=== PATIENT | male | born 1990 | race Caucasian/White ===

== ENCOUNTER 2020-02-26 14:30 | Emergency (ER) | payer SELFPAY ==
[2020-02-26 14:42] VITALS: BP 145/78; PULSE 84; RESP 84; TEMP 37.4; O2SAT 98
--- NOTE | 2020-02-26 14:44 | ED.URI ---
HPI - URI/Sore Throat General Chief Complaint: Upper Respiratory Infection Stated Complaint: URI/Cough Source: patient Mode of arrival: ambulatory Limitations: no limitations History of Present Illness HPI Narrative: Patient is a 29-year-old male who presents requesting Covid testing for employer. Patient reports headache and sinus pressure x2 to 3 days, reports cough. Denies fever, denies body aches or other complaints. He reports taking [id number] meds with limited relief. He denies chest pain or shortness of breath. MD elicited complaint: cough, sinus pain and other (Headache) Related Data Home Medications Medication Instructions Recorded Confirmed No Home Medications 02/26/20 02/26/20 Allergies Allergy/AdvReac Type Severity Reaction Status Date / Time No Known Allergies Allergy Verified 02/26/20 14:42 Review of Systems Review of Systems: Narrative: CONSTITUTIONAL: Denies fever, chills, or sweats. EYES: Denies visual changes, redness, or discharge. ENT: Denies rhinorrhea, congestion, sore throat, or otalgia. Reports sinus pressure CARDIOVASCULAR: Denies chest pain, palpitations, or edema. RESPIRATORY: Reports cough, denies dyspnea. GASTROINTESTINAL: Denies abdominal pain, nausea, vomiting, or diarrhea. GENITOURINARY: Denies dysuria or hematuria. SKIN: Denies rash or itching. MUSCULOSKELETAL: Denies back pain, joint pain, or myalgia. NEUROLOGIC: Reports headache, denies numbness, dizziness, or weakness. PSYCHIATRIC: Denies anxiety or depression. PMFSH Past Medical History Medical History No significant family history No significant past medical history Surgical History Surgical History No significant past surgical history Social History Social History (Updated 02/26/20 @ 14:47 by KATHERINE Santana) Smoking status: Current every day smoker Alcohol intake: current Alcohol use details: Occasional Substance use: never Occupation/Education: occupation Gender identity (if verbalized by the patient): Male Exam Narrative: Exam Narrative: GENERAL: Well-appearing, well-nourished, and in no acute distress. HEAD: Normocephalic, atraumatic. EYES: No redness or drainage. ENT: Mucous membranes pink and moist. CHEST: No respiratory distress. EXTREMITIES: Normal range of motion. SKIN: Warm, dry, no rash. NEURO: No focal deficits. Alert and oriented x3. Gait steady. PSYCH: Normal affect. No signs of depression or anxiety. Course Vital Signs Vital signs: Vital Signs Temperature 37.4 C 02/26/20 14:42 Pulse Rate 84 02/26/20 14:42 Respiratory Rate 84 H 02/26/20 14:42 Blood Pressure 145/78 H 02/26/20 14:42 Pulse Oximetry 98 02/26/20 14:42 Temperature 37.4 C 02/26/20 14:42 Pulse Rate 84 02/26/20 14:42 Respiratory Rate 84 H 02/26/20 14:42 Blood Pressure 145/78 H 02/26/20 14:42 Pulse Oximetry 98 02/26/20 14:42 Reviewed. Patient has been instructed to follow-up with his PCP regarding his blood pressure. MDM - URI/Sore Throat MDM Narrative Medical decision making narrative: Outpatient Covid testing ordered at this time. Patient's vital signs stable, discussed quarantine with patient. Patient is stable for discharge to home. 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 Please quarantine until further instruc
== END 2020-02-26 14:58 | disposition home or self-care (01) ==
PROVIDERS: Emergency Provider Nurse Practitioner
DX: Z20.828 Contact with and (suspected) exposure to other viral communicable diseases (principal); J06.9 Acute upper respiratory infection, unspecified; F17.200 Nicotine dependence, unspecified, uncomplicated
CPT/HCPCS: 99211; G0463

== ENCOUNTER 2020-02-29 12:43 | Outpatient (NON) | payer SELFPAY ==
[2020-03-01 01:07] LABS: SARS-CoV-2 RNA PCR Positive
== END 2020-02-29 12:44 ==
PROVIDERS: Visit Provider Nurse Practitioner
DX: U07.1 COVID-19 (principal)
CPT/HCPCS: 87635; C9803; U0003

== ENCOUNTER 2021-04-28 22:02 | Emergency (ER) | payer OTHER, SELFPAY ==
[2021-04-28 22:03] VITALS: BP 143/71; PULSE 99; RESP 16; TEMP 36.6; O2SAT 100
--- NOTE | 2021-04-28 23:38 | ED.GENADULT ---
HPI - General Adult General Chief complaint: Extremity Injury, Upper Stated complaint: Left hand injury, lac Time Seen by Provider: 04/28/21 22:29 History of Present Illness HPI narrative: Patient is a 30-year-old gentleman who presents to emergency department with chief complaint of left middle finger laceration. Patient reports he was at work and a string container fell cutting the top of his left middle finger. Patient reports he has full range of motion reports that the bleeding is controlled reports that his tetanus is up-to-date. Related Data Home Medications Medication Instructions Recorded Confirmed No Home Medications 02/26/20 02/26/20 Allergies Allergy/AdvReac Type Severity Reaction Status Date / Time No Known Allergies Allergy Verified 04/28/21 22:33 Review of Systems Review of Systems: A 10 system review of systems was completed on the patient and is negative except for what is stated in the HPI. Nursing and ancillary documentation was reviewed. PMFSH Past Medical History Medical History No significant family history No significant past medical history Surgical History Surgical History No significant past surgical history Social History Social History Smoking status: Current every day smoker Alcohol intake: current Alcohol use details: Occasional Substance use: never Gender identity (if verbalized by the patient): Male Exam Narrative: GENERAL: Well-appearing, well-nourished, and in no acute distress. HEAD: Normocephalic, atraumatic. EYES: PERRLA and EOMI. ENT: Nares clear, no rhinorrhea or epistaxis. Mucous membranes moist. NECK: Supple. CHEST: Clear to auscultation. No respiratory distress. HEART: Regular rate and rhythm. No murmur heard. Normal peripheral pulses. ABDOMEN: Soft, nontender, nondistended, normal active bowel sounds. EXTREMITIES: Normal range of motion. No edema. 1.5 cm laceration of the dorsum of the left middle finger at the PIP joint SKIN: Warm, dry, no rash. NEURO: No focal deficits. Alert and oriented x3. PSYCH: Normal mood and affect. Course Vital Signs Vital signs: Vital Signs Temperature 36.6 C 04/28/21 22:03 Pulse Rate 99 04/28/21 22:03 Respiratory Rate 16 04/28/21 22:03 Blood Pressure 143/71 H 04/28/21 22:03 Pulse Oximetry 100 04/28/21 22:03 Temperature 36.6 C 04/28/21 22:03 Pulse Rate 99 04/28/21 22:03 Respiratory Rate 16 04/28/21 22:03 Blood Pressure 143/71 H 04/28/21 22:03 Pulse Oximetry 100 04/28/21 22:03 Procedures Laceration Laceration 1: Date: 04/28/21 Time: 23:41 Site: upper extremity (Left middle finger) Side (If applicable): left Size (cm): 1.5 Description: linear Depth: simple, single layer Local Anesthetic: lidocaine 1% Amount of anesthesia used (mL): 3 Pre-repair: wound explored and irrigated ====== Skin Level ====== Skin layer closed with: nylon Size (cm): 4-0 Number of sutures: 3 Technique: simple, interrupted ====== Subcutaneous Layer ====== ====== Muscle Layer ====== ====== Tendon Layer ====== Medical Decision Making Vital Signs Vital Signs: Vital Signs Temperature 36.6 C 04/28/21 22:03 Pulse Rate 99 04/28/21 22:03 Respiratory Rate 16 04/28/21 22:03 Blood Pressure 143/71 H 04/28/21 22:03 Pulse Oximetry 100 04/28/21 22:03 Temperature 36.6 C 04/28/21 22:03 Pulse Rate 99 04/28/21 22:03 Respiratory Rate 16 04/28/21 22:03 Blood Pressure 143/71 H 04/28/21 22:03 Pulse Oximetry 100 04/28/21 22:03 Discharge Plan Discharge Clinical Impression: Laceration of left middle finger Qualifiers: Encounter type: initial encounter Damage to nail stat
== END 2021-04-28 23:55 | disposition home or self-care (01) ==
PROVIDERS: Emergency Provider Emergency Medicine
DX: S61.213A Laceration without foreign body of left middle finger without damage to nail, initial encounter (principal); F17.210 Nicotine dependence, cigarettes, uncomplicated; W20.8XXA Other cause of strike by thrown, projected or falling object, initial encounter
CPT/HCPCS: 12001; 99282

== ENCOUNTER 2021-05-09 13:11 | Emergency (ER) | payer OTHER, SELFPAY ==
--- NOTE | 2021-05-09 13:14 | ED.WOUNDLAC ---
HPI - Wound/Laceration General Chief Complaint: Wound/Laceration Stated Complaint: Suture Removal Time Seen by Provider: 05/09/21 13:14 Source: patient, RN notes reviewed and old records reviewed Mode of arrival: ambulatory Limitations: no limitations History of Present Illness HPI narrative: 30-year-old male presents to the [facility] for suture removal. Sutures were placed on 28 April 2021, 11 days ago Related Data Home Medications Medication Instructions Recorded Confirmed No Home Medications 02/26/20 02/26/20 Allergies Allergy/AdvReac Type Severity Reaction Status Date / Time No Known Allergies Allergy Verified 05/09/21 13:18 Review of Systems Review of Systems: All systems reviewed & are unremarkable except as noted in HPI and below Constitutional: Constitutional: Reports no additional constitutional complaints, Denies chills and Denies fever(s) Eyes: Eyes: Reports no additional eye complaints ENT: Reports system reviewed and no additional complaints, except as documented Cardiovascular: Cardiovascular: Reports no additional cardiovascular complaints Respiratory: Respiratory: Reports no additional respiratory complaints Musculoskeletal: Musculoskeletal: Reports no additional musculoskeletal complaints Integumentary/Breasts: Skin/Breast: Reports as per HPI Comments: Left PIP middle finger sutures Neurologic: Reports system reviewed and no additional complaints, except as documented Psychiatric: Psychiatric: Reports no additional psychiatric complaints Allergic/Immunologic: Allergic/Immunologic: Reports no additional allergic/immunologic complaints PMFSH Past Medical History Medical History No significant family history No significant past medical history Surgical History Surgical History No significant past surgical history Social History Social History Smoking status: Current every day smoker Alcohol intake: current Alcohol use details: Occasional Substance use: never Gender identity (if verbalized by the patient): Male Comments At the time of my signature, I reviewed and agree with the nursing past medical, surgical, social, and family history. There is no relevant family history pertinent to the patient complaint. Exam Const: General: healthy appearing, no acute distress and alert Nutritional Appearance: well nourished Orientation/consciousness: patient oriented x3 Limitations: no limitations HENMT: Head: normal to inspection Ears: external ears normal Eyes: Pupils: Equal, round and reactive pupils present Neck: Neck: normal visual inspection, no lymphadenopathy and no meningeal signs Chest: Chest palpation & inspection: normal inspection of the chest Resp: Effort & Inspection: normal respiratory effort and no use of accessory muscles Cardio: Rate: regular rate Rhythm: regular rhythm GI: GI Palp: Yes Soft to palpation and No Tenderness to palpation present (GI) : General: Yes no CVA tenderness Back/Spine/Pelvis: Back: no CVA tenderness Skin: General skin exam: normal color Rashes: no rashes Wounds: wounds noted Other: Healed laceration left PIP dorsal aspect middle finger, no redness or swelling noted. Neuro: General: patient oriented x3, moves all extremities, no meningeal signs and no focal motor deficits Cranial nerves: Yes Equal, round and reactive pupils present Speech: normal speech Gait exam (Neuro): Normal gait present Extrem: General: normal to inspection Psych: Appearance: grossly normal and well kempt Mental Status: mental status grossly normal Affect: normal affect Attitude: cooperative Thought content: Yes Normal thought content present Course Course Emergency Course: Area cleaned with Betadine. Explained procedure to patient. 3 sutures removed. Wound is well approximated Disc
[2021-05-09 13:20] VITALS: BP 151/75; PULSE 92; RESP 16; TEMP 36.6; O2SAT 99
== END 2021-05-09 13:29 | disposition home or self-care (01) ==
PROVIDERS: Emergency Provider Nurse Practitioner
DX: S61.213D Laceration without foreign body of left middle finger without damage to nail, subsequent encounter (principal); X58.XXXD Exposure to other specified factors, subsequent encounter; F17.200 Nicotine dependence, unspecified, uncomplicated
CPT/HCPCS: 99211; G0463

== ENCOUNTER 2024-08-06 11:28 | Emergency (ER) | payer SELFPAY ==
--- NOTE | ~2024-08-06 | XR_ITS ---
HISTORY: laceration COMPARISON: None TECHNIQUE: 2 views of the right second digit were performed FINDINGS: No acute or subacute fracture. Joint spaces are preserved and alignment is maintained. Soft tissues are without radiopaque foreign body or significant calcification. Age-appropriate mineralization. IMPRESSION: No acute fracture. No radiopaque foreign body. Reviewed, dictated and finalized at location A.
[2024-08-06 11:31] VITALS: BP 120/77; PULSE 103; RESP 17; TEMP 37; O2SAT 95
--- NOTE | 2024-08-06 12:28 | ED_ITS ---
HPI - Wound/Laceration General Chief Complaint: Wound/Laceration Stated Complaint: finger avulsion Time Seen by Provider: 08/06/24 12:08 History of Present Illness HPI narrative: 33-year-old male presents to emergency department for a laceration to the dorsum of his right 2nd digit that occurred prior to arrival. Patient states he accidentally cut his finger on a creasing and cutting press feeder. Last Tdap unknown. Denies difficulty with range of motion. Bleeding is controlled. Related Data Allergies Allergy/AdvReac Type Severity Reaction Status Date / Time No Known Allergies Allergy Verified 05/09/21 13:18 Review of Systems Review of Systems: All systems reviewed & are unremarkable except as noted in HPI and below PMFSH Past Medical History Medical History No significant family history No significant past medical history Surgical History Surgical History No significant past surgical history Social History Social History Smoking status: Current every day smoker Alcohol intake: current Alcohol use details: Occasional Substance use: never Occupation/Education: occupation Gender identity (if verbalized by the patient): Male Exam Narrative: GENERAL: Well-appearing, well-nourished, and in no acute distress. HEAD: Normocephalic, atraumatic. EYES: EOMI. ENT: Nares clear, no rhinorrhea or epistaxis. Mucous membranes moist. NECK: Supple. CHEST: Clear to auscultation. No respiratory distress. HEART: Regular rate and rhythm. No murmur heard. Normal peripheral pulses. EXTREMITIES: Normal range of motion. No edema. SKIN: 1 cm skin flap that is mostly avulsed from the dorsum of the right 2nd digit overlying the PIP with the proximal area of the skin flap attached. No deep structures or foreign bodies visualized. Patient has full active and passive range of motion of finger without difficulty. Cap refill less than 2. Sensation intact. NEURO: No focal deficits. Alert and oriented x3 Course Vital Signs Vital signs: Vital Signs Temperature 98.6 F 08/06/24 11:31 Pulse Rate 103 H 08/06/24 11:31 Respiratory Rate 08/06/24 11:31 Blood Pressure 120/77 08/06/24 11:31 Pulse Oximetry 95 08/06/24 11:31 Oxygen Delivery Room Air 08/06/24 11:31 Temperature 98.6 F 08/06/24 11:31 Pulse Rate 103 H 08/06/24 11:31 Respiratory Rate 17 08/06/24 11:31 Blood Pressure 120/77 08/06/24 11:31 Pulse Oximetry 95 08/06/24 11:31 Oxygen Delivery Room Air 08/06/24 11:31 Procedures Laceration Laceration 1: Date: 08/06/24 Time: 14:11 Site: upper extremity Side (If applicable): right Size (cm): 1 Description: flap Depth: simple, single layer Local Anesthetic: lidocaine 1% Amount of anesthesia used (mL): 2 Pre-repair: wound explored, irrigated and irrigated extensively ====== Skin Level ====== Skin layer closed with: nylon Size (cm): 5-0 Number of sutures: 4 Technique: simple, interrupted ====== Subcutaneous Layer ====== ====== Muscle Layer ====== ====== Tendon Layer ====== MDM - Wound/Laceration MDM Narrative Medical decision making narrative: 33-year-old male presents to emergency department for a laceration to the dorsum of his right 2nd finger that occurred prior to arrival. Patient accidentally cut his finger on a creasing and cutting press feeder. Vitals with mild tachycardia 103, was unremarkable. Exam is significant for the above. X-ray of the finger shows no acute fracture, no radiopaque foreign body. Patient updated on results. Digital block performed, laceration irrigated with normal saline and closed with 4 sutures without complications. Given location of the laceration patient was placed in a finger splint to immobilize the DIP. Advised suture removal in 7 days discussed strict ED return precautions. Given patient was using a dirty creasing and cutting press feeder, will cover empirically with Keflex. First dose provided here. Patient is agreeable with the plan verbalized understanding. Discharged in stable condition. Discharge Plan Discharge Clinical Impression: Laceration Patient Disposition: Home Condition: Stable Instructions: Antibiotic Form, Care For Your Stitches (ED), Laceration (ED) Additional Instructions: You were evaluated in the emergency department for a laceration. You had 4 stitches placed. Please get these removed in 7 days. Take antibiotics as directed. Return to the emergency department if you develop fever, surrounding redness, drainage or other concerning symptoms. Patient Language: Japanese Prescriptions: New cephalexin 500 mg capsule 500 mg PO Q8H 7 Days Qty: 21 0RF Follow-up/Referrals: Sulema Coy DO [Physician] - PHYSICIAN,QUALITY PROJECT MANAGER [Non-Staff] -
[2024-08-06 13:25] VITALS: BP 117/76; PULSE 88; RESP 16; O2SAT 100
[2024-08-06] MEDS: CEPHALEXIN 500 MG CAPSULE PO (14:29)
[2024-08-06] MEDS: TETANUS,DIPHTHERIA,AC PERTUSSIS ADULT (0.5 ML) BOOSTRIX IM (14:29)
== END 2024-08-06 14:38 | disposition home or self-care (01) ==
PROVIDERS: Emergency Provider Physician Assistant
DX: S61.210A Laceration without foreign body of right index finger without damage to nail, initial encounter (principal); W26.8XXA Contact with other sharp object(s), not elsewhere classified, initial encounter; F17.200 Nicotine dependence, unspecified, uncomplicated; Z23 Encounter for immunization
CPT/HCPCS: 12001; 73140; 90471; 90715; 99283; A9270